=== PATIENT | male | born 1990 | race Caucasian/White ===

== ENCOUNTER 2016-11-23 15:08 | Emergency (ER) ==
[2016-11-23 15:13] VITALS: BP 147/103; TEMP 98.5; BMI 23.7
--- NOTE | 2016-11-23 15:26 | ED.PDOC ---
General ED Provider: Dr. EJ MCCOY Chief Complaint: Bite Stated Complaint: PUSTULE BUTTOCK Time Seen by Physician: 15:20 (SEEN WITH KO) Mode of Arrival: Walk-In Information Source: Patient Exam Limitations: No limitations Nursing and Triage Documentation Reviewed and Agree: Yes Skin Complaint Exam - Skin/Soft Tissue Complaint/Exam Onset/Duration: 1 DAY Symptoms Are: Still present Timing: Constant Initial Severity: Mild Current Severity: Mild Character: Reports: Swelling Aggravating: Reports: None Alleviating: Reports: None Associated Signs and Symptoms: Denies: Fever, Chills, Itching, Drainage, Bruising, Tenderness, Red streaks, Joint swelling Related History: Reports: Similar episode Related Surgical History: Reports: None Recent Exposure to Others w/Similar Symptoms: No Skin Findings: Present: Normal findings Differential Diagnoses: Abscess Review of Systems - Review Of Systems Constitutional: Reports: No symptoms Eyes: Reports: No symptoms Ears, Nose, Mouth, Throat: Reports: No symptoms Respiratory: Reports: No symptoms Cardiac: Reports: No symptoms GI: Reports: No symptoms : Reports: No symptoms Musculoskeletal: Reports: No symptoms Skin: Reports: Other (ABSCESS) Neurological: Reports: No symptoms Endocrine: Reports: No symptoms Hematologic/Lymphatic: Reports: No symptoms All Other Systems: Reviewed and Negative Past Medical History - Past Medical History Endocrine: Reports: None Cardiovascular: Reports: None Respiratory: Reports: None Hematological: Reports: None Gastrointestinal: Reports: None Genitourinary: Reports: None Neuro/Psych: Reports: None Musculoskeletal: Reports: None Cancer: Reports: None - Surgical History General Surgical History: Reports: Other (PE tubes ) - Family History Family History: Reports: None - Social History Smoking Status: Never smoker Hx Substance Use: No Alcohol Screening: None Physical Exam - Physical Exam Appearance: Well-appearing, No pain distress, Well-nourished Eyes: LUIS FERNANDO, EOMI, Conjunctiva clear ENT: Ears normal, Nose normal, Oropharynx normal Respiratory: Airway patent, Breath sounds clear, Breath sounds equal, Respirations nonlabored Cardiovascular: RRR, Pulses normal, No rub, No murmur GI/: Soft, Nontender, No masses, Bowel sounds normal, No Organomegaly Musculoskeletal: Limited ROM Skin: Warm, Dry, Normal color Neurological: Sensation intact, Motor intact, Reflexes intact, Cranial nerves intact, Alert, Oriented Psychiatric: Affect appropriate, Mood appropriate Critical Care Note - Critical Care Note Total Time (mins): 0 Course - Course Vital Signs: Temp Pulse Resp BP Pulse Ox 11/23/16 15:09 98.5 F 92 H 98 H 147/103 H 98 Departure - Departure Time of Disposition: 15:27 Disposition: HOME SELF-CARE Discharge Problem: Abscess Instructions: Abscess (ED) Condition: Good Pt referred to PMD for follow-up: No Additional Instructions: ABSCESS Please call your Family Physician as soon as possible to schedule a follow-up appointment. Prescriptions: Sulfamethoxazole/Trimethoprim [Bactrim Ds 800/160 mg] 1 tab PO Q12HR #10 tablet Allergies/Adverse Reactions: Allergies Sulfa (Sulfonamide Antibiotics) Allergy (Verified 11/23/16 15:13) Home Medications: Ambulatory Orders Sulfamethoxazole/Trimethoprim [Bactrim Ds 800/160 mg] 1 tab PO Q12HR #10 tablet 11/23/16 Disposition Discussed With: Patient
== END 2016-11-23 16:07 | disposition home or self-care (01) ==
LOC: ED 15:08
DX: L02.31 Cutaneous abscess of buttock (principal)
CPT/HCPCS: 99282

== ENCOUNTER 2017-08-28 11:12 | Outpatient (CLI) | END 2017-08-28 11:13 | disposition home or self-care (01) | LOC: FCC-LAB 11:12 | PROVIDERS: ATTEND General Practice | DX: Z79.899 Other long term (current) drug therapy (principal) | CPT/HCPCS: 36415; 80053; 80061; 81001; 85025 ==

== ENCOUNTER 2017-09-10 15:14 | Outpatient (CLI) ==
--- NOTE | 2017-09-10 16:33 | DI ---
EXAM: Three views of the right ankle HISTORY: Right ankle pain. COMPARISON: Same day right foot x-rays FINDINGS: There is no cortical irregularity or displaced fracture of the right ankle. There is no ly tic or blastic lesion. There is minimal degenerative disease. The joint space is maintained. The s oft tissues demonstrate minimal swelling. Internal fixation hardware is noted in the calcaneus. 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
--- NOTE | 2017-09-10 16:33 | DI ---
EXAM: Radiographs, right knee HISTORY: Right knee pain. COMPARISON: None available. TECHNIQUE: Four views. FINDINGS: Bone mineralization is normal. There is no fracture or dislocation. The joint spaces are maintained. No focal soft tissue abnormality is seen. IMPRESSION: No fracture or dislocation.
--- NOTE | 2017-09-10 16:35 | DI ---
Exam: Three x-rays of the right foot. Comparison: 10/08/2014. Reason for exam: Pain in right foot FINDINGS: Operative changes are seen after orthopedic screw fixation of the right calcaneus without evidence of hardware complication. The imaged osseous structures are diffusely demineralized. There is no obvious fracture. No unexplained calcific soft tissue density or radiopaque retained foreign body. There is a lucency seen in the mid body of the calcaneus and likely is secondary to osteopenia. Cannot rule out the possibility of an acute fracture. Impression: Orthopedic screw fixation of the calcaneus without evidence of hardware complication. Ev aluation for fracture is limited by diffuse osseous demineralization. If clinical suspicion is high for an acute injury. Further evaluation may be performed.
== END 2017-09-10 15:15 | disposition home or self-care (01) ==
LOC: RAD 15:14
PROVIDERS: ATTEND General Practice
DX: M79.671 Pain in right foot (principal); M25.571 Pain in right ankle and joints of right foot; M25.561 Pain in right knee

== ENCOUNTER 2017-09-13 13:59 | Outpatient (CLI) ==
--- NOTE | 2017-09-13 15:37 | CT ---
EXAM: CT right foot without contrast HISTORY: Right calcaneal fracture COMPARISON: Radiograph 09/10/2017 TECHNIQUE: Multiple axial images of the right foot were obtained without intravenous contrast. Imag es were reformatted in the sagittal and coronal planes FINDINGS: Four surgical screws are present within the calcaneus from a posterior approach, 2 which a re obliquely oriented and two which are transversely oriented. Numerous fracture lines are seen thro ughout the calcaneus, involving the posterior, middle and anterior aspects with some fracture lines e xtending into the subtalar joint. There is displacement of fracture fragments by up to 0.4 cm as see n on axial image 52. No other fractures are seen although marked osteopenia does limit evaluation fo r nondisplaced fractures. No dislocation identified. Diffuse subcutaneous edema is present. IMPRESSION: 1. Comminuted, mildly displaced intra-articular calcaneal fracture as described. It is uncertain if this is due to the initial trauma or this represents acute re-fracture. 2. Marked osteopenia. 3. Subcutaneous edema.
== END 2017-09-13 14:00 | disposition home or self-care (01) ==
LOC: RAD 13:59
PROVIDERS: ATTEND General Practice
DX: S92.001G Unspecified fracture of right calcaneus, subsequent encounter for fracture with delayed healing (principal)

== ENCOUNTER 2018-01-20 09:00 | Outpatient (RCR) ==
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
--- NOTE | 2018-01-20 10:27 | RS.OPPTDN ---
Subjective Date of Note: 01/20/18 Visit #: 2 Date of Evaluation: 01/17/18 Payer Source: Workman's Comp Treatment Diagnosis: Right foot and ankle pain, s/p ORIF of right calcaneus Fx Current Subjective/complaints:: Patient reports soreness and stiffness today , but feels this is possibly due to rainy weather.He has tingling in the R toes and lateral aspect of the R ankle. Pain Assessment - Pain Description Pain Location: R ankle /foot Pain Description: Tightness, Radiating, Dull, Aching Current Pain Intensity: 4/10 - Treatment Modality: Electrical Stim Unattended Parameters/Method Applied: 20 mins. high volt to R ankle ,2 small electrodes , one medial ,one lateral @ 125 pv,progressed to 175 pv.,after exercises today. Patient Position: Supine - Heat/Cryotherapy Treatment: Cryotherapy (concurrent with e-stim) Interventions - Exercise/Activities/Manual Therapy Exercises/Activities: 20 mins. passive ankle DF, PF, inversion, and eversion.Progressed to AAROM ,then AROM of the same motions.HEP review. Total minutes of Exercise: 20 Manual Therapy: Na Total minutes of Manual Therapy: 0 HOME EXERCISE PROGRAM: AROM into ankle DF, PF, inversion, and eversion, SLR's, toe curls (anterior tib.) and towel stretch for calf and HS stretching. - Charges Timed Code Treatment Minutes: 40 Total Treatment Time: 45 Procedures billed for this date of service:: ex,cp,e-stim Assessment: Patient tolerates passive stretches fairly well,reports increased pain at end range of dorsiflexion today.He is tender to palpate the lateral aspect just posterior to the malleolus,also tenderness reported with gentle extension of the toes,especially the great toe.He does report the stretches to the ankle did help with flexibility. Patient Education: Education of diagnosis, Body/Joint mechanics, Home Exercise Program, Home Safety, Activity Modification, Education of Plan of Care Short Term Goals Goal #1: Pt independent and compliant in HEP. Goal to be met by: 01/31/18 Progress towards Goal:: Progressing Goal #2: Right ankle Active DF to 10 degrees. Goal to be met by: 01/31/18 (neutral,same as eval.) Goal #3: Right ankle strength 4/5 in available range. Goal to be met by: 01/31/18 Goal #4: Right quad strength 4+/5. Goal to be met by: 01/31/18 Construction Driver Goals Goal #1: Pt knows HEP and to continue ex's to maintain level of function at D/C. Goal to be met by: 02/21/18 Progress towards goal: Progressing Goal #2: Score on LE functional scale improved to 55/80. Goal to be met by: 02/21/18 Goal #3: Pt to amb w/o assistive device with minimal gait deviation and min. pain. Goal to be met by: 02/21/18 Goal #4: Pt to perform prolonged standing activities with minimal right foot pain. Goal to be met by: 02/21/18 Plan PLAN OF CARE EXPIRES ON:: 02/21/18 ORDER # VISITS AND/OR THROUGH DATE: 02/21/18 PLAN: Cotninue PT to increased ankle ROM ,reduce /eliminate pain resulting in better gait.Patient currently using crutches.
== END 2018-01-21 23:59 ==
PROVIDERS: ATTEND Orthopaedic Surgery Orthopaedic Trauma
DX: S92.001D Unspecified fracture of right calcaneus, subsequent encounter for fracture with routine healing (principal); M79.671 Pain in right foot; M25.671 Stiffness of right ankle, not elsewhere classified; M26.9 Dentofacial anomaly, unspecified; Z98.890 Other specified postprocedural states

== ENCOUNTER 2018-02-11 09:00 | Outpatient (RCR) ==
--- NOTE | 2018-01-22 10:45 | RS.OPPTDN ---
Subjective Date of Note: 01/22/18 Visit #: 3 Date of Evaluation: 01/17/18 Payer Source: Workman's Comp Treatment Diagnosis: Right foot and ankle pain, s/p ORIF of right calcaneus Fx Current Subjective/complaints:: Reports muscle soreness in the R calf after last session ,but better today.He reports tertying more to place the R foot flat when walking. Pain Assessment - Pain Description Pain Location: R ankle /heel Pain Description: Tightness, Dull, Aching Current Pain Intensity: 0 at rest Worst Pain Intensity: 6 with heel cord stretches today Other Comments regarding Pain:: increases with walking - Treatment Modality: Electrical Stim Unattended Parameters/Method Applied: 20 mins. high volt ,2 small electrodes,one on medial ,one on lateral malleolus @ 135 -180 pv. Patient Position: Supine - Heat/Cryotherapy Treatment: Cryotherapy (concurrent with e-stim) Interventions - Exercise/Activities/Manual Therapy Exercises/Activities: 35 mins. passive ankle DF, PF, inversion, and eversion.Progressed to AAROM ,then AROM of the same motions.Added ankle circles CW and CCW. Total minutes of Exercise: 35 Manual Therapy: Na Total minutes of Manual Therapy: 0 HOME EXERCISE PROGRAM: AROM into ankle DF, PF, inversion, and eversion, SLR's, toe curls (anterior tib.) and towel stretch for calf and HS stretching. - Charges Timed Code Treatment Minutes: 55 Total Treatment Time: 55 Procedures billed for this date of service:: cp,e-stim,ex 2 Assessment: Patient tolerates heel cord stretches better today .He is tender to palpate the plantar surface along the metatarsal heads today.He is more aware of heel strike when ambulating. Patient Education: Education of diagnosis, Body/Joint mechanics, Home Exercise Program, Home Safety, Activity Modification, Education of Plan of Care Patient demonstrates compliance with HEP?: Yes Short Term Goals Goal #1: Pt independent and compliant in HEP. Goal to be met by: 01/31/18 Progress towards Goal:: Progressing Goal #2: Right ankle Active DF to 10 degrees. Goal to be met by: 01/31/18 Progress towards Goal:: Progressing Goal #3: Right ankle strength 4/5 in available range. Goal to be met by: 01/31/18 Goal #4: Right quad strength 4+/5. Goal to be met by: 01/31/18 Data Communications Engineer Goals Goal #1: Pt knows HEP and to continue ex's to maintain level of function at D/C. Goal to be met by: 02/21/18 Progress towards goal: Progressing Goal #2: Score on LE functional scale improved to 55/80. Goal to be met by: 02/21/18 Goal #3: Pt to amb w/o assistive device with minimal gait deviation and min. pain. Goal to be met by: 02/21/18 Goal #4: Pt to perform prolonged standing activities with minimal right foot pain. Goal to be met by: 02/21/18 Plan PLAN OF CARE EXPIRES ON:: 02/21/18 ORDER # VISITS AND/OR THROUGH DATE: 02/21/18 PLAN: Continue PT to reduce pain ,increase ROM in the R ankle.
--- NOTE | 2018-01-24 10:26 | RS.OPPTDN ---
Subjective Date of Note: 01/24/18 Visit #: 4 Date of Evaluation: 01/17/18 Payer Source: Workman's Comp Treatment Diagnosis: Right foot and ankle pain, s/p ORIF of right calcaneus Fx Current Subjective/complaints:: Discussed with supervising PT about using moist heat today to the R calf prior to manual therapy. Pain Assessment - Pain Description Pain Location: L ankle Pain Description: Tightness, Sharp, Dull, Aching Pain Description: sharp at end range of stretches Current Pain Intensity: 1-2 at rest Other Comments regarding Pain:: elevates with stretches and weight bearing ,but not rated - Heat/Cryotherapy Treatment: Hot Pack (20 mins. prior to manual therapy) Interventions - Exercise/Activities/Manual Therapy Exercises/Activities: Stretches done concurrently with manual therapy today.HEP discussed also. Total minutes of Exercise: 0 Manual Therapy: 25 mins. deep tissue massage to gastroc/soleus and laterally to Achilles tendon. Total minutes of Manual Therapy: 25 HOME EXERCISE PROGRAM: AROM into ankle DF, PF, inversion, and eversion, SLR's, toe curls (anterior tib.) and towel stretch for calf and HS stretching. - Charges Timed Code Treatment Minutes: 25 Total Treatment Time: 45 Procedures billed for this date of service:: hp,manual 2 Assessment: Improved passive and active dorsifklexion today after treatment.He has improved heel strike when exiting the clinc,using crutches.He continues to be tender to palpate the dorsal aspect of metatarsal heads. Patient Education: Education of diagnosis, Body/Joint mechanics, Home Exercise Program, Home Safety, Activity Modification, Education of Plan of Care Patient demonstrates compliance with HEP?: Yes Short Term Goals Goal #1: Pt independent and compliant in HEP. Goal to be met by: 01/31/18 Progress towards Goal:: Progressing Goal #2: Right ankle Active DF to 10 degrees. Goal to be met by: 01/31/18 (4 degrees active today) Progress towards Goal:: Progressing Goal #3: Right ankle strength 4/5 in available range. Goal to be met by: 01/31/18 Progress towards Goal:: Progressing Goal #4: Right quad strength 4+/5. Goal to be met by: 01/31/18 (n/a) Custodial Goals Goal #1: Pt knows HEP and to continue ex's to maintain level of function at D/C. Goal to be met by: 02/21/18 Progress towards goal: Progressing Goal #2: Score on LE functional scale improved to 55/80. Goal to be met by: 02/21/18 Goal #3: Pt to amb w/o assistive device with minimal gait deviation and min. pain. Goal to be met by: 02/21/18 Goal #4: Pt to perform prolonged standing activities with minimal right foot pain. Goal to be met by: 02/21/18 Plan PLAN OF CARE EXPIRES ON:: 02/21/18 ORDER # VISITS AND/OR THROUGH DATE: 02/21/18 PLAN: Continue PT to increase ROM and strength in the L ankle,eliminate pain with weight bearing.
--- NOTE | 2018-01-27 10:35 | RS.OPPTDN ---
Subjective Date of Note: 01/27/18 Visit #: 5 Date of Evaluation: 01/17/18 Payer Source: Workman's Comp Treatment Diagnosis: Right foot and ankle pain, s/p ORIF of right calcaneus Fx Current Subjective/complaints:: Patient reports trying to bear more weight on the R foot when walking. Pain Assessment - Pain Description Pain Location: R ankle /heel Pain Description: Sharp, Dull, Aching Pain Description: soreness Current Pain Intensity: 0 at rest Worst Pain Intensity: 7/10 with stretching of the Achilles - Heat/Cryotherapy Treatment: Hot Pack (15 mins heat to calf,then 10 mins. cold to ankle after exercises), Cryotherapy (hot to calf,cold after to ankle/heel) Interventions - Exercise/Activities/Manual Therapy Exercises/Activities: 30 mins. total of passive stretches,resisted red theraband for DF ,3/15 reps.Active dorsiflexion to 10 degrees today x 5 reps. Total minutes of Exercise: 30 Manual Therapy: 25 mins. deep tissue massage to gastroc/soleus and laterally to Achilles tendon. Total minutes of Manual Therapy: 0 HOME EXERCISE PROGRAM: AROM into ankle DF, PF, inversion, and eversion, SLR's, toe curls (anterior tib.) and towel stretch for calf and HS stretching. - Objective Findings Observations,measurements,etc.: Active DF 10 degrees today. - Charges Timed Code Treatment Minutes: 30 Total Treatment Time: 55 Procedures billed for this date of service:: hp,ex 2,cp Assessment: Patient has improved passive and active ankle motion today.We discussed to begin using one crutch as soon as possible if tolerable (pain free) . Patient Education: Education of diagnosis, Body/Joint mechanics, Home Exercise Program, Home Safety, Activity Modification, Education of Plan of Care Patient demonstrates compliance with HEP?: Yes Short Term Goals Goal #1: Pt independent and compliant in HEP. Goal to be met by: 01/31/18 Progress towards Goal:: Progressing Goal #2: Right ankle Active DF to 10 degrees. Goal to be met by: 01/31/18 (not yet consistent) Progress towards Goal:: Partially Met Goal #3: Right ankle strength 4/5 in available range. Goal to be met by: 01/31/18 Progress towards Goal:: Progressing Goal #4: Right quad strength 4+/5. Goal to be met by: 01/31/18 (n/a) Progress towards Goal:: Progressing Halfway Goals Goal #1: Pt knows HEP and to continue ex's to maintain level of function at D/C. Goal to be met by: 02/21/18 Progress towards goal: Progressing Goal #2: Score on LE functional scale improved to 55/80. Goal to be met by: 02/21/18 Goal #3: Pt to amb w/o assistive device with minimal gait deviation and min. pain. Goal to be met by: 02/21/18 Goal #4: Pt to perform prolonged standing activities with minimal right foot pain. Goal to be met by: 02/21/18 Plan PLAN OF CARE EXPIRES ON:: 02/21/18 ORDER # VISITS AND/OR THROUGH DATE: 02/21/18 PLAN: Cont. PT to increase R ankle motion and strength.
--- NOTE | 2018-01-29 10:37 | RS.OPPTDN ---
Subjective Date of Note: 01/29/18 Visit #: 6 Date of Evaluation: 01/17/18 Payer Source: Workman's Comp Treatment Diagnosis: Right foot and ankle pain, s/p ORIF of right calcaneus Fx Current Subjective/complaints:: Patient reports tendernes in the R heel/ankle but no sharp pain with using crutches.We discussed progressing to one crutch on the L side . Pain Assessment - Pain Description Pain Location: R ankle Pain Description: Tightness, Sharp, Dull, Aching Pain Description: sharp is intermittent when attempting to increase weight bearing on the R f Current Pain Intensity: 0 at rest Worst Pain Intensity: 7 / 10 with taking steps and no assistive device Other Comments regarding Pain:: 4 / 10 with use of one crutch - Heat/Cryotherapy Treatment: Hot Pack (20 mins. hot before exercises,10 cold after) Interventions - Exercise/Activities/Manual Therapy Exercises/Activities: 30 mins. total of passive stretches,AROM of SLR and SAQwith 4 # ,3/15 reps.Active dorsiflexion to 10 degrees today .HEP review and to begin using one crutch. Total minutes of Exercise: 30 Manual Therapy: NA Total minutes of Manual Therapy: 0 HOME EXERCISE PROGRAM: AROM into ankle DF, PF, inversion, and eversion, SLR's, toe curls (anterior tib.) and towel stretch for calf and HS stretching. - Charges Timed Code Treatment Minutes: 30 Total Treatment Time: 60 Procedures billed for this date of service:: hp,ex 2,cp Assessment: Patient reports increased pain with use one crutch when attempted , and more increase without assistive device.We discussed the amount of recovery time since surgery and the ankle stability is good enough to progress the weight bearing .He is advised to continue ice for pain control and do HEP 2-3 x/ day ,including stretches for dorsiflexion. Patient Education: Education of diagnosis, Body/Joint mechanics, Home Exercise Program, Home Safety, Activity Modification, Education of Plan of Care Patient demonstrates compliance with HEP?: Yes Short Term Goals Goal #1: Pt independent and compliant in HEP. Goal to be met by: 01/31/18 Progress towards Goal:: Progressing Goal #2: Right ankle Active DF to 10 degrees. Goal to be met by: 01/31/18 (not yet consistent) Progress towards Goal:: Partially Met Goal #3: Right ankle strength 4/5 in available range. Goal to be met by: 01/31/18 Progress towards Goal:: Progressing Goal #4: Right quad strength 4+/5. Goal to be met by: 01/31/18 (n/a) Progress towards Goal:: Progressing Rig Superintendent Goals Goal #1: Pt knows HEP and to continue ex's to maintain level of function at D/C. Goal to be met by: 02/21/18 Progress towards goal: Progressing Goal #2: Score on LE functional scale improved to 55/80. Goal to be met by: 02/21/18 Goal #3: Pt to amb w/o assistive device with minimal gait deviation and min. pain. Goal to be met by: 02/21/18 Progress towards goal: Progressing Goal #4: Pt to perform prolonged standing activities with minimal right foot pain. Goal to be met by: 02/21/18 Plan PLAN OF CARE EXPIRES ON:: 02/21/18 ORDER # VISITS AND/OR THROUGH DATE: 02/21/18 PLAN: Continue PT to eliminte ankle pain ,increase strength for normal gait pattern without assistive device.
--- NOTE | 2018-01-31 10:37 | RS.OPPTDN ---
Subjective Date of Note: 01/31/18 Visit #: 7 Date of Evaluation: 01/17/18 Payer Source: Workman's Comp Treatment Diagnosis: Right foot and ankle pain, s/p ORIF of right calcaneus Fx Current Subjective/complaints:: Patient enters clinic using one crutch today, feels he is able to bear approximately 75 % of his weight on the R ankle. Pain Assessment - Pain Description Pain Location: R ankle Pain Description: Aching Pain Description: dull ache at rest Current Pain Intensity: not rated Worst Pain Intensity: 5-6 when walking with one crutch today - Heat/Cryotherapy Treatment: Hot Pack (20 mins. prior to exercises,10 mins. cold after exercises) , Cryotherapy (20 mins. hot before/cold after exercises) Interventions - Exercise/Activities/Manual Therapy Exercises/Activities: 25 mins. total on legpress @ 105 with both legs,then 45 # R leg only,3.15 reps each.Ended session with static heel cord stretch ( R foot on platform of leg press Total minutes of Exercise: 25 Manual Therapy: NA Total minutes of Manual Therapy: 0 HOME EXERCISE PROGRAM: AROM into ankle DF, PF, inversion, and eversion, SLR's, toe curls (anterior tib.) and towel stretch for calf and HS stretching. - Charges Timed Code Treatment Minutes: 25 Total Treatment Time: 55 Procedures billed for this date of service:: hp,ex 2.cp Assessment: Patient tolerates increased resistive exercises well today,reports aching in Achilles tendon area with ecentric motions on leg press.The ankle motion is improving actively and passively.He has increased weight bearing on the R LE ,utilitizing one crutch on level surface.Patient is aware to use two crutches for safety ,such as up/down steps if necessary. Patient Education: Education of diagnosis, Body/Joint mechanics, Home Exercise Program, Home Safety, Activity Modification, Education of Plan of Care Patient demonstrates compliance with HEP?: Yes Short Term Goals Goal #1: Pt independent and compliant in HEP. Goal to be met by: 01/31/18 Progress towards Goal:: Progressing Goal #2: Right ankle Active DF to 10 degrees. Goal to be met by: 01/31/18 (not yet consistent) Progress towards Goal:: Partially Met Goal #3: Right ankle strength 4/5 in available range. Goal to be met by: 01/31/18 Progress towards Goal:: Progressing Goal #4: Right quad strength 4+/5. 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 Goal to be met by: 02/21/18 Progress towards goal: Progressing Goal #2: Score on LE functional scale improved to 55/80. Goal to be met by: 02/21/18 Goal #3: Pt to amb w/o assistive device with minimal gait deviation and min. pain. Goal to be met by: 02/21/18 Progress towards goal: Progressing Goal #4: Pt to perform prolonged standing activities with minimal right foot pain. Goal to be met by: 02/21/18 Progress towards goal: Progressing Plan PLAN OF CARE EXPIRES ON:: 02/21/18 ORDER # VISITS AND/OR THROUGH DATE: 02/21/18 PLAN: Cont. PT to return to PLOF,eliminate R ankle pain.
--- NOTE | 2018-02-03 10:23 | RS.OPPTDN ---
Subjective Date of Note: 02/03/18 Visit #: 8 Date of Evaluation: 01/17/18 Payer Source: Workman's Comp Treatment Diagnosis: Right foot and ankle pain, s/p ORIF of right calcaneus Fx Current Subjective/complaints:: Patient enters clinic using one crutch today.He reports walking alot over the weekend.Reports feeling more comfortable going up steps. Pain Assessment - Pain Description Pain Location: R ankle Pain Description: Tightness, Dull, Aching, Chronic Current Pain Intensity: 0 at rest Worst Pain Intensity: 5-6 with walking - Heat/Cryotherapy Treatment: Hot Pack (20 mins. to R calf,prior to stretches) Interventions - Exercise/Activities/Manual Therapy Exercises/Activities: 30 mins. total on legpress @ 120 with both legs,then 60 and 75# # R leg only,3/15 reps each. Total minutes of Exercise: 30 Manual Therapy: NA HOME EXERCISE PROGRAM: AROM into ankle DF, PF, inversion, and eversion, SLR's, toe curls (anterior tib.) and towel stretch for calf and HS stretching. - Charges Timed Code Treatment Minutes: 30 Total Treatment Time: 50 Procedures billed for this date of service:: hp,ex 2 Assessment: Progressing well,increased R ankle motion ,R LE strength improving.He reports fatigue and stretch discomfort only today.He reports occasional sharp pain withwalking ,but generlly described as an aching . Patient Education: Education of diagnosis, Body/Joint mechanics, Home Exercise Program, Home Safety, Activity Modification, Education of Plan of Care Patient demonstrates compliance with HEP?: Yes Short Term Goals Goal #1: Pt independent and compliant in HEP. Goal to be met by: 01/31/18 Progress towards Goal:: Progressing Goal #2: Right ankle Active DF to 10 degrees. Goal to be met by: 01/31/18 (not yet consistent) Progress towards Goal:: Partially Met Goal #3: Right ankle strength 4/5 in available range. Goal to be met by: 01/31/18 Progress towards Goal:: Progressing Goal #4: Right quad strength 4+/5. Goal to be met by: 01/31/18 (n/a) Progress towards Goal:: Progressing Residential Goals Goal #1: Pt knows HEP and to continue ex's to maintain level of function at D/C. Goal to be met by: 02/21/18 Progress towards goal: Partially Met Goal #2: Score on LE functional scale improved to 55/80. Goal to be met by: 02/21/18 Goal #3: Pt to amb w/o assistive device with minimal gait deviation and min. pain. Goal to be met by: 02/21/18 Progress towards goal: Progressing Goal #4: Pt to perform prolonged standing activities with minimal right foot pain. Goal to be met by: 02/21/18 Progress towards goal: Partially Met Plan PLAN OF CARE EXPIRES ON:: 02/21/18 ORDER # VISITS AND/OR THROUGH DATE: 02/21/18 PLAN: Cont. PT to increase strength and motion in the R ankle and R LE.
--- NOTE | 2018-02-05 10:05 | RS.OPPTDN ---
Subjective Date of Note: 02/05/18 Visit #: 9 Date of Evaluation: 01/17/18 Payer Source: Workman's Comp Treatment Diagnosis: Right foot and ankle pain, s/p ORIF of right calcaneus Fx Current Subjective/complaints:: Reports the R heel is tender as he is trying to walk more with proper gait pattern.He does have improved dorsiflexion with walking. Interventions - Exercise/Activities/Manual Therapy Exercises/Activities: 50 mins. total ,begining with 5 mins. on treadmill @ 1.5 mph,5 mins. elliptcal both supervised to assess gait pattern,and 10 mins. on bike ,then leg press @ 120 with both legs,then 75# , R leg only,3/15 reps each.Static heel cord stretches using foot plate of the leg press.Active R dorsiflexion of 13 degrees. Total minutes of Exercise: 50 Manual Therapy: NA HOME EXERCISE PROGRAM: AROM into ankle DF, PF, inversion, and eversion, SLR's, toe curls (anterior tib.) and towel stretch for calf and HS stretching. - Charges Timed Code Treatment Minutes: 40 Total Treatment Time: 50 Procedures billed for this date of service:: ex 3 Assessment: Progressing well in all areas,continues to have better weight bearing on the R fot,does have antalgic gait at times.He is motivated to improve and is compliant to recommendations of the therapy staff. Patient Education: Education of diagnosis, Body/Joint mechanics, Home Exercise Program, Home Safety, Activity Modification, Education of Plan of Care Patient demonstrates compliance with HEP?: Yes Short Term Goals Goal #1: Pt independent and compliant in HEP. Goal to be met by: 01/31/18 Progress towards Goal:: Partially Met Goal #2: Right ankle Active DF to 10 degrees. Goal to be met by: 01/31/18 (13 degrees ) Progress towards Goal:: Met Goal #3: Right ankle strength 4/5 in available range. Goal to be met by: 01/31/18 Progress towards Goal:: Progressing Goal #4: Right quad strength 4+/5. 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 Goal to be met by: 02/21/18 Progress towards goal: Partially Met Goal #2: Score on LE functional scale improved to 55/80. Goal to be met by: 02/21/18 Goal #3: Pt to amb w/o assistive device with minimal gait deviation and min. pain. Goal to be met by: 02/21/18 Progress towards goal: Progressing Goal #4: Pt to perform prolonged standing activities with minimal right foot pain. Goal to be met by: 02/21/18 Progress towards goal: Partially Met Plan PLAN OF CARE EXPIRES ON:: 02/21/18 ORDER # VISITS AND/OR THROUGH DATE: 02/21/18 PLAN: Cont . PT to return to PLOF.
--- NOTE | 2018-02-07 10:11 | RS.OPPTDN ---
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 Pain Assessment - Pain Description Pain Location: R ankle Pain Description: Tightness, Sharp, Dull, Aching Current Pain Intensity: not rated - Heat/Cryotherapy Treatment: Cryotherapy (10 mins after exercises) Interventions - Exercise/Activities/Manual Therapy Exercises/Activities: 50 mins. total ,begining with 5 mins. on treadmill @ 1.5 mph,5 mins. elliptical both supervised to assess gait pattern,progressed to [employer] BALANCE SYSTEM for postural stability,weight shift,limits of stability and maze control. Total minutes of Exercise: 50 Manual Therapy: NA Total minutes of Manual Therapy: 0 HOME EXERCISE PROGRAM: AROM into ankle DF, PF, inversion, and eversion, SLR's, toe curls (anterior tib.) and towel stretch for calf and HS stretching. - Charges Timed Code Treatment Minutes: 50 Total Treatment Time: 60 Procedures billed for this date of service:: NMR 3 ,cp Assessment: Progressing well still has increased in the lateral aspect of the R ankle and heel with weight shift.He is compliant to trying to weight bear more on the R ,using one crutch ,or no device for short distances in home. Patient Education: Education of diagnosis, Body/Joint mechanics, Home Exercise Program, Home Safety, Activity Modification, Education of Plan of Care Patient demonstrates compliance with HEP?: Yes Short Term Goals Goal #1: Pt independent and compliant in HEP. Goal to be met by: 01/31/18 Progress towards Goal:: Partially Met Goal #2: Right ankle Active DF to 10 degrees. Goal to be met by: 01/31/18 (13 degrees ) Progress towards Goal:: Met Goal #3: Right ankle strength 4/5 in available range. Goal to be met by: 01/31/18 Progress towards Goal:: Progressing Goal #4: Right quad strength 4+/5. Goal to be met by: 01/31/18 (n/a) Progress towards Goal:: Progressing Detention Goals Goal #1: Pt knows HEP and to continue ex's to maintain level of function at D/C. Goal to be met by: 02/21/18 Progress towards goal: Partially Met Goal #2: Score on LE functional scale improved to 55/80. Goal to be met by: 02/21/18 Goal #3: Pt to amb w/o assistive device with minimal gait deviation and min. pain. Goal to be met by: 02/21/18 Progress towards goal: Progressing Goal #4: Pt to perform prolonged standing activities with minimal right foot pain. Goal to be met by: 02/21/18 Progress towards goal: Partially Met Plan PLAN OF CARE EXPIRES ON:: 02/21/18 ORDER # VISITS AND/OR THROUGH DATE: 02/21/18 PLAN: Cont. PT to increase R ankle strength ,eliminate pain.
--- NOTE | 2018-02-11 09:55 | RS.OPPTDN ---
Subjective Date of Note: 02/11/18 Visit #: 11 Date of Evaluation: 01/17/18 Payer Source: Workman's Comp Treatment Diagnosis: Right foot and ankle pain, s/p ORIF of right calcaneus Fx Current Subjective/complaints:: Patient reports the Achilles tendon feels better ,but the R ankle and heel still bother him alot .He is using one crutch on the L today. Pain Assessment - Pain Description Pain Location: R ankle and heel Pain Description: Sharp, Dull, Aching, Chronic Current Pain Intensity: not rated Interventions - Exercise/Activities/Manual Therapy Exercises/Activities: 40 mins. total ,begining with 10 mins. elliptical supervised to assess gait pattern,progressed to leg press @ 120 # reistance,3/ 15 reps.Standing mionisquats ,2/20 reps using large therapy ball against wall. [employer] BALANCE SYSTEM for limits of stability and maze control. Total minutes of Exercise: 40 Manual Therapy: NA Total minutes of Manual Therapy: 0 HOME EXERCISE PROGRAM: AROM into ankle DF, PF, inversion, and eversion, SLR's, toe curls (anterior tib.) and towel stretch for calf and HS stretching. - Charges Timed Code Treatment Minutes: 40 Total Treatment Time: 40 Procedures billed for this date of service:: ex 2,NMR Assessment: Patient continues to progress,has increased strength in the R LE.The R ankle and heel pain is dependent upon how long he is on his feet.He is very attentive and complian to recommendations of the therapy staff. Patient Education: Body/Joint mechanics, Education of Plan of Care Patient demonstrates compliance with HEP?: Yes Short Term Goals Goal #1: Pt independent and compliant in HEP. Goal to be met by: 01/31/18 Progress towards Goal:: Partially Met Goal #2: Right ankle Active DF to 10 degrees. Goal to be met by: 01/31/18 (13 degrees ) Progress towards Goal:: Met Goal #3: Right ankle strength 4/5 in available range. Goal to be met by: 01/31/18 Progress towards Goal:: Progressing Goal #4: Right quad strength 4+/5. Goal to be met by: 01/31/18 (n/a) Progress towards Goal:: Partially Met Prison Goals Goal #1: Pt knows HEP and to continue ex's to maintain level of function at D/C. Goal to be met by: 02/21/18 Progress towards goal: Partially Met Goal #2: Score on LE functional scale improved to 55/80. Goal to be met by: 02/21/18 Goal #3: Pt to amb w/o assistive device with minimal gait deviation and min. pain. Goal to be met by: 02/21/18 Progress towards goal: Progressing Goal #4: Pt to perform prolonged standing activities with minimal right foot pain. Goal to be met by: 02/21/18 Progress towards goal: No Change Plan PLAN OF CARE EXPIRES ON:: 02/21/18 ORDER # VISITS AND/OR THROUGH DATE: 02/21/18 PLAN: Continue PT to strengthen R ankle ,reduce pain ,return to normal gait pattern.
--- NOTE | 2018-02-14 10:53 | RS.CXNS ---
Date of scheduled appointment: 02/14/18 Type: No Show Reason for Cancel/NS: Unknown
--- NOTE | 2018-02-17 08:08 | RS.QUICKDC ---
Discharge from PT Date of Discharge: 02/14/18 Number of Visits: 11 Reason for Discharge: Rerceived fax from to D/C therapy until further notice.
== END 2018-02-21 23:59 ==
PROVIDERS: ATTEND Orthopaedic Surgery Orthopaedic Trauma
DX: S92.001D Unspecified fracture of right calcaneus, subsequent encounter for fracture with routine healing (principal); M79.671 Pain in right foot; M25.671 Stiffness of right ankle, not elsewhere classified; R26.9 Unspecified abnormalities of gait and mobility; Z98.890 Other specified postprocedural states

== ENCOUNTER 2018-06-05 09:00 | Outpatient (RCR) | END 2018-06-23 23:59 | PROVIDERS: ATTEND Surgery Trauma Surgery | DX: G89.11 Acute pain due to trauma (principal); M54.5 Low back pain; M25.671 Stiffness of right ankle, not elsewhere classified; M25.571 Pain in right ankle and joints of right foot; R26.9 Unspecified abnormalities of gait and mobility ==

== ENCOUNTER 2018-09-19 09:00 | Outpatient (RCR) ==
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
--- NOTE | 2018-09-03 16:15 | RS.OPPTDN ---
Subjective Date of Note: 09/03/18 Visit #: 2 Number of visits approved by Insurance: up to 18 Date of Evaluation: 09/01/18 Payer Source: Workman's Comp Treatment Diagnosis: Right ankle pain and stiffness Current Subjective/complaints:: Patient reports R ankle stiffness ,but feels what motion is available is now smoother since the surgery. Pain Assessment - Pain Description Pain Location: R ankle Pain Description: Tightness Current Pain Intensity: 5 - Heat/Cryotherapy Treatment: Hot Pack (15 mins. prior to exercises) Interventions - Exercise/Activities/Manual Therapy Exercises/Activities: 25 mins. total of prolonged static stretch to R heel cord, DF/PF for 09/05 reps with red t-band,ankle circles CW/CCW.HEP review. Total minutes of Exercise: 25 Manual Therapy: NA Total minutes of Manual Therapy: 0 HOME EXERCISE PROGRAM: ankle alphabet, heelcord stretch against the wall, towel curl to work anterior tib, and SLR. Also advised to perform Active hip adduction bilaterally in supine. - Charges Timed Code Treatment Minutes: 25 Total Treatment Time: 40 Procedures billed for this date of service:: hp,ex 2 Assessment: Patient has moderate tightness in the R heel cord .He fatigues easily with resisted DF/PF theraband exercises.He does have less crepitus in the R ankle as compared to before the latest surgery.He is attentive and motivated to improve.Instructed to use one or two crutches ,wean off them gradually,focus on foot placement ,tends to externally rotate the R LE/hip. Patient Education: Education of diagnosis, Body/Joint mechanics, Home Exercise Program, Home Safety, Activity Modification, Education of Plan of Care Patient demonstrates compliance with HEP?: Yes Short Term Goals Goal #1: Pt independent and compliant in HEP. Goal to be met by: 09/15/18 Progress towards Goal:: Progressing Goal #2: Right ankle DF to 10 degrees. Goal to be met by: 09/15/18 Progress towards Goal:: Progressing Comments:: increased after stretches today Goal #3: Right ankle PF, inversion and eversion 4/5. Goal to be met by: 09/15/18 Goal #4: Right SLR to 50-55 degrees in supine. Goal to be met by: 09/15/18 Detention Goals Goal #1: Pt knows HEP and to continue ex's to maintain level of function at D/C. Goal to be met by: 10/16/18 Progress towards goal: Progressing Goal #2: Score on LE functional scale improved 59/80. Goal to be met by: 10/16/18 Goal #3: Pt to amb. community distances with minimal gt deviation & min. ankle pain. Goal to be met by: 10/16/18 Goal #4: Pt to perform daily selfcare and ADL's without limitation from ankle pain. Goal to be met by: 10/16/18 Plan Dates of Head Piece Assembler Goals: 10/16/18 Expiration date of current Insurance Approval:: na PLAN: Cnt. skilled PT to stretch and strengthen the R ankle.
--- NOTE | 2018-09-05 09:01 | RS.OPPTDN ---
Subjective Date of Note: 09/05/18 Visit #: 3 Number of visits approved by Insurance: up to 18 Date of Evaluation: 09/01/18 Payer Source: Workman's Comp Treatment Diagnosis: Right ankle pain and stiffness Current Subjective/complaints:: Patient feels he is walking better today.He is doing his exercises at home.He understands to use crutches if necessary ,based upon his pain level. Pain Assessment - Pain Description Pain Location: R ankle Pain Description: Sharp, Dull, Aching Current Pain Intensity: 4/10 Other Comments regarding Pain:: occasional sharp pain ,dependent upon how long he is on his feet - Heat/Cryotherapy Treatment: Hot Pack, Cryotherapy (heat prior to exercises ,cold after) Interventions - Exercise/Activities/Manual Therapy Exercises/Activities: 30 mins. total of prolonged static stretch to R heel cord, DF/PF for 315 reps with blue t-band,ankle circles CW/CCW.HEP review. Total minutes of Exercise: 30 Manual Therapy: NA Total minutes of Manual Therapy: 0 HOME EXERCISE PROGRAM: ankle alphabet, heelcord stretch against the wall, towel curl to work anterior tib, and SLR. Also advised to perform Active hip adduction bilaterally in supine. - Charges Timed Code Treatment Minutes: 30 Total Treatment Time: 60 Procedures billed for this date of service:: hp,ex 2,cp Assessment: Patient has improved DF,increased strength in the anterior tib, tolerates the resistance exercises with dull ache,but no elevationof sharp pain.He is motivated to improve and complioant to HEP. Patient Education: Education of diagnosis, Body/Joint mechanics, Home Exercise Program, Home Safety, Activity Modification, Education of Plan of Care Patient demonstrates compliance with HEP?: Yes Short Term Goals Goal #1: Pt independent and compliant in HEP. Goal to be met by: 09/15/18 Progress towards Goal:: Progressing Goal #2: Right ankle DF to 10 degrees. Goal to be met by: 09/15/18 Progress towards Goal:: Progressing Goal #3: Right ankle PF, inversion and eversion 4/5. Goal to be met by: 09/15/18 Goal #4: Right SLR to 50-55 degrees in supine. Goal to be met by: 09/15/18 Alf Goals Goal #1: Pt knows HEP and to continue ex's to maintain level of function at D/C. Goal to be met by: 10/16/18 Progress towards goal: Progressing Goal #2: Score on LE functional scale improved 59/80. Goal to be met by: 10/16/18 Goal #3: Pt to amb. community distances with minimal gt deviation & min. ankle pain. Goal to be met by: 10/16/18 Goal #4: Pt to perform daily selfcare and ADL's without limitation from ankle pain. Goal to be met by: 10/16/18 Plan Dates of Sticker Hand Goals: 10/16/18 Expiration date of current Insurance Approval:: pending PLAN: Cont skilled PT to strengthen the R ankle ,increase motion for better gait pattern.
--- NOTE | 2018-09-08 09:04 | RS.OPPTDN ---
Subjective Date of Note: 09/08/18 Visit #: 4 Number of visits approved by Insurance: up to 18 Date of Evaluation: 09/01/18 Payer Source: Workman's Comp Treatment Diagnosis: Right ankle pain and stiffness Current Subjective/complaints:: Reports using the crutches minimally over the weekend.He enters clinic with less antalgic gait today. Pain Assessment - Pain Description Pain Location: R ankle Pain Description: Tightness, Aching, Chronic Current Pain Intensity: 10/01 - Heat/Cryotherapy Treatment: Hot Pack (15 mins. prior to ex) Interventions - Exercise/Activities/Manual Therapy Exercises/Activities: 35 mins. total of prolonged static stretch to R heel cord, DF/PF for 09/10 reps with blue t-band,ankle circles CW/CCW.Ended session on leg press,07/08 with both LE's @ 150 # ,then 08/08 for R LE only @ 75#. Total minutes of Exercise: 35 Manual Therapy: NA Total minutes of Manual Therapy: 0 HOME EXERCISE PROGRAM: ankle alphabet, heelcord stretch against the wall, towel curl to work anterior tib, and SLR. Also advised to perform Active hip adduction bilaterally in supine. - Charges Timed Code Treatment Minutes: 35 Total Treatment Time: 50 Procedures billed for this date of service:: hp,ex 2 Assessment: Progressing well,has increased strength and motion in the r ankle.He has better gait pattern ,less antalgic. Patient Education: Education of diagnosis, Body/Joint mechanics, Home Exercise Program, Home Safety, Activity Modification, Education of Plan of Care Patient demonstrates compliance with HEP?: Yes Short Term Goals Goal #1: Pt independent and compliant in HEP. Goal to be met by: 09/15/18 Progress towards Goal:: Progressing Goal #2: Right ankle DF to 10 degrees. Goal to be met by: 09/15/18 Progress towards Goal:: Progressing Goal #3: Right ankle PF, inversion and eversion 09/26. Goal to be met by: 09/15/18 Progress towards Goal:: Progressing Goal #4: Right SLR to 50-55 degrees in supine. Goal to be met by: 09/15/18 Progress towards Goal:: Progressing Compressor Station Engineer Goals Goal #1: Pt knows HEP and to continue ex's to maintain level of function at D/C. Goal to be met by: 10/16/18 Progress towards goal: Progressing Goal #2: Score on LE functional scale improved 59/80. Goal to be met by: 10/16/18 Goal #3: Pt to amb. community distances with minimal gt deviation & min. ankle pain. Goal to be met by: 10/16/18 Progress towards goal: Progressing Goal #4: Pt to perform daily selfcare and ADL's without limitation from ankle pain. Goal to be met by: 10/16/18 Progress towards goal: Progressing Plan Dates of Compressor Station Engineer Goals: 10/16/18 Expiration date of current Insurance Approval:: na PLAN: Cont. skilled PT to strengthen the R ankle /LE for safer.efficient ADL's.
--- NOTE | 2018-09-10 08:59 | RS.OPPTDN ---
Subjective Date of Note: 09/10/18 Visit #: 5 Number of visits approved by Insurance: pending Date of Evaluation: 09/01/18 Payer Source: Workman's Comp Treatment Diagnosis: Right ankle pain and stiffness Current Subjective/complaints:: Patient walked approximately 1/2 mile yesterday in town ,but had severe pain afterwards for about 2 hours.He took pain meds. and used ice for relief. Pain Assessment - Pain Description Pain Location: R ankle Pain Description: Aching Current Pain Intensity: 3/10 - Heat/Cryotherapy Treatment: Hot Pack (20 mins. prior to exercises), Cryotherapy (heat before / cold after exercises) Interventions - Exercise/Activities/Manual Therapy Exercises/Activities: 25 mins. total of ankle pumps,heelslides,SLR's with 4 #,3/ 15 each exercise. Total minutes of Exercise: 0 Manual Therapy: NA Total minutes of Manual Therapy: 0 HOME EXERCISE PROGRAM: ankle alphabet, heelcord stretch against the wall, towel curl to work anterior tib, and SLR. Also advised to perform Active hip adduction bilaterally in supine. - Charges Timed Code Treatment Minutes: 25 Total Treatment Time: 60 Procedures billed for this date of service:: hp,ex 2,cp Assessment: Patient has increased antalgic gait today,possibly attempting a longer walk yesterday.He does have increased quad strength ,doing SLR's with dood technique.He is compliant to HEP and other recommendations of the therapy staff. Patient Education: Body/Joint mechanics, Home Exercise Program, Education of Plan of Care Patient demonstrates compliance with HEP?: Yes Short Term Goals Goal #1: Pt independent and compliant in HEP. Goal to be met by: 09/15/18 Progress towards Goal:: Progressing Goal #2: Right ankle DF to 10 degrees. Goal to be met by: 09/15/18 Progress towards Goal:: Progressing Goal #3: Right ankle PF, inversion and eversion /5. Goal to be met by: 09/15/18 Progress towards Goal:: Progressing Goal #4: Right SLR to 50-55 degrees in supine. Goal to be met by: 09/15/18 Progress towards Goal:: Met Wet Finisher Wool Goals Goal #1: Pt knows HEP and to continue ex's to maintain level of function at D/C. Goal to be met by: 10/16/18 Progress towards goal: Progressing Goal #2: Score on LE functional scale improved 59/80. Goal to be met by: 10/16/18 Goal #3: Pt to amb. community distances with minimal gt deviation & min. ankle pain. Goal to be met by: 10/16/18 Progress towards goal: Regressing (increased antalgia today) Goal #4: Pt to perform daily selfcare and ADL's without limitation from ankle pain. Goal to be met by: 10/16/18 Progress towards goal: Progressing Plan Dates of Penitentiary Goals: 10/16/18 Expiration date of current Insurance Approval:: pending PLAN: Cont. PT to reduce/eliminate R ankle pain ,strengthen the R LE for normal gait pattern.
--- NOTE | 2018-09-16 09:42 | RS.OPPTDN ---
Subjective Date of Note: 09/16/18 Visit #: 6 Number of visits approved by Insurance: pending Date of Evaluation: 09/01/18 Payer Source: Workman's Comp Treatment Diagnosis: Right ankle pain and stiffness Current Subjective/complaints:: Reports moderate R ankle pain today,but overall feels he is progressing ,walking better. Pain Assessment - Pain Description Pain Location: R ankle Pain Description: Tightness, Dull, Aching Current Pain Intensity: /10 - Heat/Cryotherapy Treatment: Hot Pack (20 mins. prior to exercises) Interventions - Exercise/Activities/Manual Therapy Exercises/Activities: 30 mins. total of passive heelcord stretches,active ankle pumps x 15,then bilateral leg press @ 150 # 3/15. R leg press ,1/15 @ 75#,then 2 /15 @ 90 #. Total minutes of Exercise: 30 Manual Therapy: NA Total minutes of Manual Therapy: 0 HOME EXERCISE PROGRAM: ankle alphabet, heelcord stretch against the wall, towel curl to work anterior tib, and SLR. Also advised to perform Active hip adduction bilaterally in supine. - Charges Timed Code Treatment Minutes: 30 Total Treatment Time: 50 Procedures billed for this date of service:: hp,ex 2 Assessment: Patient progressing well ,improved R ankle dorsiflexion ,both passively and actively.He has increased strength in the R LE ,tolerated more resistance today on single leg press with out elevation of ankle pain. Patient Education: Education of diagnosis, Body/Joint mechanics, Home Exercise Program, Education of Plan of Care Short Term Goals Goal #1: Pt independent and compliant in HEP. Goal to be met by: 09/15/18 Progress towards Goal:: Progressing Goal #2: Right ankle DF to 10 degrees. Goal to be met by: 09/15/18 Progress towards Goal:: Met Goal #3: Right ankle PF, inversion and eversion 4/5. Goal to be met by: 09/15/18 Progress towards Goal:: Progressing Goal #4: Right SLR to 50-55 degrees in supine. Goal to be met by: 09/15/18 Progress towards Goal:: Met Director Of Training Goals Goal #1: Pt knows HEP and to continue ex's to maintain level of function at D/C. Goal to be met by: 10/16/18 Progress towards goal: Progressing Goal #2: Score on LE functional scale improved 59/80. Goal to be met by: 10/16/18 Goal #3: Pt to amb. community distances with minimal gt deviation & min. ankle pain. Goal to be met by: 10/16/18 Progress towards goal: Progressing Goal #4: Pt to perform daily selfcare and ADL's without limitation from ankle pain. Goal to be met by: 10/16/18 Progress towards goal: Progressing Plan Dates of Prison Goals: 10/16/18 Expiration date of current Insurance Approval:: pending PLAN: Cont. skillled PT to maximize ankle motion and strength ,return to normal gait pattern.
--- NOTE | 2018-09-18 09:51 | RS.CXNS ---
Date of scheduled appointment: 09/18/18 Type: No Show Reason for Cancel/NS: Unknown
--- NOTE | 2018-09-19 10:27 | RS.OPPTDN ---
Subjective Date of Note: 09/19/18 Visit #: 7 Number of visits approved by Insurance: up to 18 Date of Evaluation: 09/01/18 Payer Source: Workman's Comp Treatment Diagnosis: Right ankle pain and stiffness Current Subjective/complaints:: Patient reports missing yesterday's appt. was due to thinking the appt. was today.He reports "stepping wrong " (inversion) yesterday and has increased pain today with weight bearing . Pain Assessment - Pain Description Pain Location: R ankle Pain Description: Sharp Current Pain Intensity: 6/10 - Heat/Cryotherapy Treatment: Hot Pack (20 mins. prior to exercises) Interventions - Exercise/Activities/Manual Therapy Exercises/Activities: 30 mins. total of passive heelcord stretches,active ankle pumps x 15.3/15 SAQ,heelslides ,and 4 point quads with 4# resistance for each exercise. Total minutes of Exercise: 30 Manual Therapy: NA Total minutes of Manual Therapy: 0 HOME EXERCISE PROGRAM: ankle alphabet, heelcord stretch against the wall, towel curl to work anterior tib, and SLR. Also advised to perform Active hip adduction bilaterally in supine. - Charges Timed Code Treatment Minutes: 30 Total Treatment Time: 50 Procedures billed for this date of service:: hp,ex 2 Assessment: Patient has less antalgic gait after treatment ,as opposed to when he entered the clinic this AM.He has no pain at rest ,but returns with weight bearing.The active dorsiflexion is improving.He does have moderate tightness in the R hamstring ,limiting the active knee extension when doing the 4 point quads. Patient Education: Education of Plan of Care Patient demonstrates compliance with HEP?: Yes Short Term Goals Goal #1: Pt independent and compliant in HEP. Goal to be met by: 09/15/18 Progress towards Goal:: Met Goal #2: Right ankle DF to 10 degrees. Goal to be met by: 09/15/18 Progress towards Goal:: Met Goal #3: Right ankle PF, inversion and eversion 4/5. Goal to be met by: 09/15/18 Progress towards Goal:: Progressing Goal #4: Right SLR to 50-55 degrees in supine. Goal to be met by: 09/15/18 Progress towards Goal:: Met Custodial Goals Goal #1: Pt knows HEP and to continue ex's to maintain level of function at D/C. Goal to be met by: 10/16/18 Progress towards goal: Met Goal #2: Score on LE functional scale improved 59/80. Goal to be met by: 10/16/18 Goal #3: Pt to amb. community distances with minimal gt deviation & min. ankle pain. Goal to be met by: 10/16/18 Progress towards goal: Progressing (slight increase in antalgic gait today) Goal #4: Pt to perform daily selfcare and ADL's without limitation from ankle pain. Goal to be met by: 10/16/18 Progress towards goal: Progressing Plan Dates of Custodial Goals: 10/16/18 Expiration date of current Insurance Approval:: pending PLAN: Cont. PT to elimiate /reduce R ankle pain ,increase strength in the entire R LE.
== END 2018-09-21 23:59 ==
PROVIDERS: ATTEND Surgery Trauma Surgery
DX: S92.001D Unspecified fracture of right calcaneus, subsequent encounter for fracture with routine healing (principal); M25.671 Stiffness of right ankle, not elsewhere classified; M25.571 Pain in right ankle and joints of right foot; R26.9 Unspecified abnormalities of gait and mobility; Z98.890 Other specified postprocedural states

== ENCOUNTER 2018-10-02 08:00 | Outpatient (RCR) ==
--- NOTE | 2018-09-23 08:50 | RS.OPPTDN ---
Subjective Date of Note: 09/23/18 Visit #: 8 Number of visits approved by Insurance: pending Date of Evaluation: 09/01/18 Payer Source: Workman's Comp Treatment Diagnosis: Right ankle pain and stiffness Current Subjective/complaints:: Patient reports increased sorenes in the R foot today,acidentally knocked a shelf of the wall ,landing on the top of his foot. Pain Assessment - Pain Description Pain Location: R ankle Pain Description: 5-10 - Heat/Cryotherapy Treatment: Hot Pack (15 mins. prior to exercises) Interventions - Exercise/Activities/Manual Therapy Exercises/Activities: 25 mins. total of passive heelcord stretches,active ankle pumps ,inversion/eversion ,CW/CCW ankle circles.Active DF is 15 degrees . Total minutes of Exercise: 25 Manual Therapy: NA Total minutes of Manual Therapy: 0 HOME EXERCISE PROGRAM: ankle alphabet, heelcord stretch against the wall, towel curl to work anterior tib, and SLR. Also advised to perform Active hip adduction bilaterally in supine. - Charges Timed Code Treatment Minutes: 25 Total Treatment Time: 40 Procedures billed for this date of service:: hp,ex 2 Assessment: Patient has improved R ankle strength and motion.He has slight antalgic gait today with the first 6-8 steps before therapy ,but absent after stretches ,reports the stretches help.We discussed the POC as he progresses. Patient Education: Education of diagnosis, Body/Joint mechanics, Home Exercise Program, Home Safety, Activity Modification, Education of Plan of Care Patient demonstrates compliance with HEP?: Yes Short Term Goals Goal #1: Pt independent and compliant in HEP. Goal to be met by: 09/15/18 Progress towards Goal:: Met Goal #2: Right ankle DF to 10 degrees. Goal to be met by: 09/15/18 Progress towards Goal:: Met Goal #3: Right ankle PF, inversion and eversion 4/5. Goal to be met by: 09/15/18 Progress towards Goal:: Progressing Goal #4: Right SLR to 50-55 degrees in supine. Goal to be met by: 09/15/18 Progress towards Goal:: Met Sales And Marketing Assistant Goals Goal #1: Pt knows HEP and to continue ex's to maintain level of function at D/C. Goal to be met by: 10/16/18 Progress towards goal: Met Goal #2: Score on LE functional scale improved 59/80. Goal to be met by: 10/16/18 Goal #3: Pt to amb. community distances with minimal gt deviation & min. ankle pain. Goal to be met by: 10/16/18 Progress towards goal: Progressing (slight increase in antalgic gait today) Goal #4: Pt to perform daily selfcare and ADL's without limitation from ankle pain. Goal to be met by: 10/16/18 Progress towards goal: Met Plan Dates of Halfway Goals: 10/16/18 Expiration date of current Insurance Approval:: na PLAN: Cont. skilled PT to eliminate R ankle pain ,resulting in normal gait pattern on all surfaces.
--- NOTE | 2018-09-25 08:25 | RS.CXNS ---
Date of scheduled appointment: 09/25/18 Type: Cancel Reason for Cancel/NS: Called ,is sick today.
--- NOTE | 2018-09-30 09:08 | RS.OPPTDN ---
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 Pain Assessment - Pain Description Pain Location: R ankle Pain Description: Tightness Current Pain Intensity: 0 - Heat/Cryotherapy Treatment: Hot Pack (20 mins. prior to exercises) Interventions - Exercise/Activities/Manual Therapy Exercises/Activities: 30 mins. total of passive heelcord stretches,active ankle pumps ,inversion/eversion ,Active DF is 15 degrees .Bilateral leg press ,15 @ 150 #,15 @ 165 #.Calf raises @ 90 # x 15 reps,progressed to 15 reps of standing calf raises. Total minutes of Exercise: 30 Manual Therapy: NA Total minutes of Manual Therapy: 0 HOME EXERCISE PROGRAM: ankle alphabet, heelcord stretch against the wall, towel curl to work anterior tib, and SLR. Also advised to perform Active hip adduction bilaterally in supine. - Charges Timed Code Treatment Minutes: 30 Total Treatment Time: 50 Procedures billed for this date of service:: hp,ex 2 Assessment: Patient has improved strength and motion for DF/PF,inversion/ eversion.He has minimal antalgia present with initiating gait ,but lessens as distance increases.He has good quad/hamstring strength present ,does not deviate from a normal path when walking. Patient Education: Education of diagnosis, Body/Joint mechanics, Home Exercise Program, Home Safety, Activity Modification, Education of Plan of Care Patient demonstrates compliance with HEP?: Yes Short Term Goals Goal #1: Pt independent and compliant in HEP. Goal to be met by: 09/15/18 Progress towards Goal:: Met Goal #2: Right ankle DF to 10 degrees. Goal to be met by: 09/15/18 Progress towards Goal:: Met Goal #3: Right ankle PF, inversion and eversion 4/5. Goal to be met by: 09/15/18 Progress towards Goal:: Progressing Goal #4: Right SLR to 50-55 degrees in supine. Goal to be met by: 09/15/18 Progress towards Goal:: Met Longterm Goals Goal #1: Pt knows HEP and to continue ex's to maintain level of function at D/C. Goal to be met by: 10/16/18 Progress towards goal: Met Goal #2: Score on LE functional scale improved 59/80. Goal to be met by: 10/16/18 Goal #3: Pt to amb. community distances with minimal gt deviation & min. ankle pain. Goal to be met by: 10/16/18 Progress towards goal: Met (slight increase in antalgic gait today) Goal #4: Pt to perform daily selfcare and ADL's without limitation from ankle pain. Goal to be met by: 10/16/18 Progress towards goal: Met Plan Dates of Vascular Technologist Goals: 10/16/18 Expiration date of current Insurance Approval:: pending PLAN: Initiate D/C plan this week due to good progress.
--- NOTE | 2018-10-02 09:03 | RS.OPPTDN ---
Subjective Date of Note: 10/02/18 Visit #: 10 Number of visits approved by Insurance: up to 18 Date of Evaluation: 09/01/18 Payer Source: Workman's Comp Treatment Diagnosis: Right ankle pain and stiffness Current Subjective/complaints:: Reports walking better and pain varies with distance,but has pain if he attempts to run or do more aggressive activities. Pain Assessment - Pain Description Pain Location: R ankle Pain Description: Dull, Aching, Chronic Pain Description: tenderness along the lateral aspect and heel of R foot Current Pain Intensity: not rated Other Comments regarding Pain:: occasionally sharp with walking on uneven surfaces - Heat/Cryotherapy Treatment: Hot Pack (20 mins. to R ankle prior to exercises) Interventions - Exercise/Activities/Manual Therapy Exercises/Activities: 30 mins. total of passive heelcord stretches,active ankle pumps ,inversion/eversion ,Active DF is 15 degrees .Bilateral leg press ,07/08 @ 165 #,08/08 @ 190 #.LE functional scale score is 40/80.Manual muscle test done for quads is 5/5 and hamstrings is 4= to 5-/5. Total minutes of Exercise: 30 Manual Therapy: NA Total minutes of Manual Therapy: 0 HOME EXERCISE PROGRAM: ankle alphabet, heelcord stretch against the wall, towel curl to work anterior tib, and SLR. Also advised to perform Active hip adduction bilaterally in supine. - Charges Timed Code Treatment Minutes: 30 Total Treatment Time: 50 Procedures billed for this date of service:: hp,ex 2 Assessment: Patient has good understanding of HEP ,has improved DF ,increased strength in the R LE and ankle.He is limited to activities that do not require prolonged standing.He has consistently reported increased pain if he tries to run ,hop,or walk longer distances (such as a mile) ,especially if he is on uneven terrain.He is aware of D/C plan.We discussed the option of a work hardening setting when the feels this is feasible. Patient Education: Education of Plan of Care Patient demonstrates compliance with HEP?: Yes Short Term Goals Goal #1: Pt independent and compliant in HEP. Goal to be met by: 09/15/18 Progress towards Goal:: Met Goal #2: Right ankle DF to 10 degrees. Goal to be met by: 09/15/18 Progress towards Goal:: Met Goal #3: Right ankle PF, inversion and eversion 4/5. Goal to be met by: 09/15/18 Progress towards Goal:: Partially Met (eversion is met,inversion with resistance elicits pain) Goal #4: Right SLR to 50-55 degrees in supine. Goal to be met by: 09/15/18 Progress towards Goal:: Met Electrician Telephone Goals Goal #1: Pt knows HEP and to continue ex's to maintain level of function at D/C. Goal to be met by: 10/16/18 Progress towards goal: Met Goal #2: Score on LE functional scale improved 59/80. Goal to be met by: 10/16/18 (40/80) Progress towards goal: Progressing Goal #3: Pt to amb. community distances with minimal gt deviation & min. ankle pain. Goal to be met by: 10/16/18 Progress towards goal: Met (slight increase in antalgic gait today) Goal #4: Pt to perform daily selfcare and ADL's without limitation from ankle pain. Goal to be met by: 10/16/18 Progress towards goal: Met Plan Dates of Long-Term Goals: 10/16/18 Expiration date of current Insurance Approval:: na PLAN: D/C due to patient is independent with HEP,no skilled PT required at this time,progressed well ,met 3/4 STG's and met 3/4 LTG's.Discussed patient POC and status with supervising PT.
== END 2018-10-21 23:59 ==
PROVIDERS: ATTEND Surgery Trauma Surgery
DX: S92.001D Unspecified fracture of right calcaneus, subsequent encounter for fracture with routine healing (principal); M25.571 Pain in right ankle and joints of right foot; M25.671 Stiffness of right ankle, not elsewhere classified; R26.9 Unspecified abnormalities of gait and mobility; Z98.890 Other specified postprocedural states